=== PATIENT | female | born 1965 | race African-American/Black ===

== ENCOUNTER 2017-01-14 08:43 | Emergency (ER) | payer MEDICAID ==
[~2017-01-14] VITALS: Ht 162.6 cm; Wt 89.0 kg
[~2017-01-14 08:43] MED LIST: ASPI-1079 PO; HYDR25TA; VITA1CAP64 PO
[2017-01-14] MEDS ORDERED: KETOROLAC 60MG/2ML VIAL IM ONE (11:15)
[2017-01-14 12:16] VITALS: BP 158/86
== END 2017-01-14 14:27 | disposition home or self-care (01) ==
LOC: ER 08:57
DX: M54.9 Dorsalgia, unspecified (principal); I10 Essential (primary) hypertension; Z88.8 Allergy status to other drugs, medicaments and biological substances
CPT/HCPCS: 72100; 81025; 96372; 99284; J1885; Z7610

== ENCOUNTER 2017-02-09 09:50 | Emergency (ER) | payer MEDICAID ==
[~2017-02-09] VITALS: Ht 167.6 cm; Wt 64.0 kg
[2017-02-09 09:50] VITALS: BP 130/76
== END 2017-02-09 12:00 | disposition home or self-care (01) ==
LOC: ER 11:42
DX: J11.1 Influenza due to unidentified influenza virus with other respiratory manifestations (principal); Z88.8 Allergy status to other drugs, medicaments and biological substances
CPT/HCPCS: 99283

== ENCOUNTER 2017-05-16 11:58 | Emergency (ER) | payer MEDICAID ==
[~2017-05-16] VITALS: Ht 162.6 cm; Wt 87.0 kg
[2017-05-16] MEDS ORDERED: IBUPROFEN 600MG TABLET PO ONE (13:15)
[2017-05-16 13:50] VITALS: BP 178/78
== END 2017-05-16 13:54 | disposition home or self-care (01) ==
LOC: ER 12:43
DX: S83.91XA Sprain of unspecified site of right knee, initial encounter (principal); W01.0XXA Fall on same level from slipping, tripping and stumbling without subsequent striking against object, initial encounter; Y93.51 Activity, roller skating (inline) and skateboarding; Y92.89 Other specified places as the place of occurrence of the external cause; M17.11 Unilateral primary osteoarthritis, right knee; R03.0 Elevated blood-pressure reading, without diagnosis of hypertension; Z88.8 Allergy status to other drugs, medicaments and biological substances
CPT/HCPCS: 73562; 81025; 99284

== ENCOUNTER 2018-10-23 08:41 | Emergency (ER) | payer MEDICAID ==
[~2018-10-23] VITALS: Ht 172.7 cm; Wt 100.0 kg
[~2018-10-23 08:41] MED LIST changes: +AMLO5TAB88 MT; -ASPI-1079 PO; +BACL-141 MT; +HYDR-4001 MT; -HYDR25TA; -VITA1CAP64 PO
[2018-10-23] MEDS ORDERED: DEXAMETHASONE 10 MG/ML VIAL IM ONE (09:30)
[2018-10-23] MEDS ORDERED: DIAZEPAM 2 MG TABLET PO ONE (09:30)
[2018-10-23] MEDS ORDERED: KETOROLAC 60MG/2ML VIAL IM ONE (09:30)
[2018-10-23 10:37] VITALS: BP 154/89
== END 2018-10-23 10:38 | disposition home or self-care (01) ==
LOC: ER 08:41
DX: M54.12 Radiculopathy, cervical region (principal); M54.41 Lumbago with sciatica, right side
CPT/HCPCS: 96372; 99283; J1100; J1885

== ENCOUNTER 2018-10-29 10:03 | Emergency (ER) | payer MEDICAID ==
[~2018-10-29] VITALS: Ht 167.6 cm; Wt 100.0 kg
[2018-10-29] MEDS ORDERED: ONDANSETRON 4MG ODT PO ONE (11:00)
[2018-10-29] MEDS ORDERED: MORPHINE SULFATE 4 MG/ML CPJ (NOT FOR IM USE) IV ONE (11:00)
[2018-10-29 12:15] VITALS: BP 162/92
== END 2018-10-29 12:25 | disposition home or self-care (01) ==
LOC: ER 10:03
DX: M54.2 Cervicalgia (principal); I10 Essential (primary) hypertension; Z98.890 Other specified postprocedural states; Z88.8 Allergy status to other drugs, medicaments and biological substances; Z79.899 Other long term (current) drug therapy
CPT/HCPCS: 96374; 99283; J2270; Q0162

== ENCOUNTER 2019-08-01 14:27 | Emergency (ER) | payer MEDICAID ==
[~2019-08-01] VITALS: Ht 162.6 cm; Wt 91.0 kg
[2019-08-01] MEDS ORDERED: HYDROCODONE/ACETAMINOPHEN 5/325MG TABLET PO ONE (16:00)
[2019-08-01] MEDS ORDERED: KETOROLAC 30MG/ML VIAL IM ONE (16:00)
[2019-08-01] MEDS ORDERED: AMLODIPINE 5MG TABLET PO ONE (19:45)
[2019-08-01 21:35] VITALS: BP 197/103
[2019-08-01] MEDS ORDERED: HYDRALAZINE HCL 100MG TABLET PO ONE (21:45)
[2019-08-01] MEDS ORDERED: HYDRALAZINE HCL 10MG TABLET PO ONE (21:45)
== END 2019-08-02 02:37 | disposition home or self-care (01) ==
LOC: ER 14:27
DX: R20.2 Paresthesia of skin (principal); M54.2 Cervicalgia; R55 Syncope and collapse; I10 Essential (primary) hypertension
CPT/HCPCS: 72125; 82962; 96372; 99284; J1885

== ENCOUNTER → 2019-09-10 | Outpatient (CLI) | payer MEDICAID ==
[~2019-09-10] MED LIST changes: +AMLO10TA80 PO; +CARV12.545 PO; +VALS1TAB79 PO
== END | disposition home or self-care (01) ==
LOC: LAB 10:16
PROVIDERS: ATTEND Neurological Surgery
DX: Z01.818 Encounter for other preprocedural examination (principal); Z11.59 Encounter for screening for other viral diseases
CPT/HCPCS: 87635; C9803

== ENCOUNTER 2019-09-12 05:14 | Inpatient (IN) | payer MEDICAID ==
[2019-09-12] VITALS (66 sets, daily range): BP systolic 104–160; BP diastolic 47–98
[~2019-09-12] VITALS: Ht 160 cm; Wt 81.6 kg
[~2019-09-12 05:14] MED LIST changes: -AMLO10TA80 PO; -CARV12.545 PO; -VALS1TAB79 PO
[2019-09-12] MEDS ORDERED: LACTATED RINGERS 1,000 ML IV SCH (05:45)
[2019-09-12] MEDS ORDERED: CARV12.545 PO (06:11)
[2019-09-12] MEDS ORDERED: AMLO10TA80 PO (06:11)
[2019-09-12] MEDS ORDERED: VALS1TAB79 PO (06:11)
[2019-09-12] MEDS ORDERED: LIDOCAINE HCL/EPINEPHRINE 1%-EPI 1:100,000 20 ML VIAL ONE (06:24)
[2019-09-12] MEDS ORDERED: THROMBIN (BOVINE) 5000 UNITS/VIAL TOP ONE (06:24)
[2019-09-12] MEDS ORDERED: BACITRACIN 50,000 UNITS/VIAL ONE (06:25)
[2019-09-12] MEDS ORDERED: ROCURONIUM BROMIDE 10MG/ML VIAL 5ML IV ONE ×2 (06:59→08:08)
[2019-09-12] MEDS ORDERED: PROPOFOL 200MG/20ML VIAL IV ONE (07:00)
[2019-09-12] MEDS ORDERED: CEFAZOLIN SODIUM 1000MG/VIAL ONE (07:00)
[2019-09-12] MEDS ORDERED: LIDOCAINE HCL 1% 20ML VIAL (Pyxis) INJ ONE (07:00)
[2019-09-12] MEDS ORDERED: MIDAZOLAM HCL 2 MG/2 ML VIAL ONE (07:00)
[2019-09-12] MEDS ORDERED: ONDANSETRON HCL 4MG/2ML INJ ONE (07:00)
[2019-09-12] MEDS ORDERED: FENTANYL CITRATE/PF 50MCG/ML 2ML VIAL ONE (07:00)
[2019-09-12] MEDS ORDERED: METOCLOPRAMIDE HCL 10MG/2ML VIAL ONE (07:00)
[2019-09-12] MEDS ORDERED: SUCCINYLCHOLINE CHLORIDE 200MG/10ML IV ONE (07:00)
[2019-09-12] MEDS ORDERED: MEPERIDINE HCL/PF 25MG/ML CPJ IV PRN (09:00)
[2019-09-12] MEDS ORDERED: HYDROMORPHONE HCL/PF 2MG/ML CPJ IV PRN (09:00)
[2019-09-12] MEDS ORDERED: ONDANSETRON HCL 4MG/2ML INJ IV PRN (09:00)
[2019-09-12] MEDS ORDERED: DEXAMETHASONE 4MG/ML 1ML VIAL ONE (09:08)
[2019-09-12] MEDS ORDERED: EPHEDRINE SULFATE 50MG/ML VIAL ONE (09:08)
[2019-09-12] MEDS ORDERED: NEOSTIGMINE METHYLSULFATE 1MG/ML 10 ML VIAL ONE (09:10)
[2019-09-12] MEDS ORDERED: GLYCOPYRROLATE 0.2 MG/ML 2ML VIAL ONE (09:10)
[2019-09-12] MEDS ORDERED: HYDROCODONE/ACETAMINOPHEN 5/325MG TABLET PO PRN (09:15)
[2019-09-12] MEDS ORDERED: MORPHINE SULFATE 4 MG/ML CPJ (NOT FOR IM USE) IV PRN (09:15)
[2019-09-12] MEDS ORDERED: KETOROLAC 30MG/ML VIAL ONE (09:34)
[2019-09-12] MEDS ORDERED: ONDANSETRON INJ IV PRN (09:45)
[2019-09-12] MEDS ORDERED: NALOXONE INJ IV PRN (09:45)
[2019-09-12] MEDS ORDERED: HYDROMORPHONE PCA 10MG/50ML IV PRN (09:45)
[2019-09-12] MEDS ORDERED: DIPHENHYDRAMINE INJ IV PRN (09:45)
[2019-09-12] MEDS: DEXT 5%/LACTATED RINGERS 1,000 ML IV SCH ×2 (09:50→20:39)
[2019-09-12] MEDS: NICARDIPINE 100 MG in SODIUM CHLORIDE 0.9% 60 ML IV PRN ×3 (10:03→22:34)
[2019-09-12] MEDS: DEXAMETHASONE 4MG/ML 1ML VIAL IV SCH ×3 (11:43→23:21)
[2019-09-12] MEDS ORDERED: IPRATROPIUM/ALBUTEROL 0.5-3(2.5)MG/3ML NEB HHN PRN (13:30)
[2019-09-12] MEDS ORDERED: CEFAZOLIN SODIUM 1000MG/VIAL IV SCH (14:00)
[2019-09-12] MEDS: CEFAZOLIN 1000MG PREMIX 50 ML IV SCH ×2 (14:06→21:24)
[2019-09-12] MEDS ORDERED: CLONIDINE 0.1MG TABLET PO PRN (19:30)
[2019-09-13] VITALS (64 sets, daily range): BP systolic 87–148; BP diastolic 37–96
[2019-09-13 05:37] LABS: HEMATOCRIT. 33.9 % (36.0-48.0); HEMOGLOBIN. 11.3 g/dL (12.0-16.0); MEAN CORPUSCULAR HEMOGLOBIN 28.4 pg (28.0-32.0); MEAN CORPUSCULAR VOLUME 85.7 fL (81.0-99.0); MEAN PLATELET VOLUME 9.8 fl (7.4-10.4); PLATELET 208 x1000/uL (130-400); RED BLOOD CELL COUNT 3.96 mill/uL (4.2-5.4); RED CELL DISTRIBUTION WIDTH 14.1 % (11.6-14.6)
[2019-09-13 05:38] LABS: CHLORIDE 110 mEq/L (98-107)
[2019-09-13 05:45] LABS: LDL CHOLESTEROL 110 mg/dL (5-100)
[2019-09-13 05:46] LABS: HDL CHOLESTEROL 40 mg/dL (40-59)
[2019-09-13] MEDS: CEFAZOLIN 1000MG PREMIX 50 ML IV SCH (06:19)
[2019-09-13] MEDS: DEXAMETHASONE 4MG/ML 1ML VIAL IV SCH ×4 (06:19→23:21)
[2019-09-13] MEDS: DEXT 5%/LACTATED RINGERS 1,000 ML IV SCH ×3 (06:19→23:21)
[2019-09-13] MEDS: AMLODIPINE 10MG TABLET PO SCH (08:38)
[2019-09-13] MEDS: CARVEDILOL 12.5MG TABLET PO SCH ×2 (08:39→21:13)
[2019-09-13] MEDS ORDERED: AMLODIPINE 5MG TABLET PO SCH (09:00)
[2019-09-13 12:04] LABS: PLATELET ESTIMATE NORMAL
[2019-09-14] VITALS: BP 139/73
[2019-09-14 04:00] VITALS: BP 168/85
[2019-09-14 05:45] LABS: CHLORIDE 105 mEq/L (98-107)
[2019-09-14 05:49] LABS: HEMATOCRIT. 35.7 % (36.0-48.0); HEMOGLOBIN. 11.8 g/dL (12.0-16.0); MEAN CORPUSCULAR HEMOGLOBIN 28.3 pg (28.0-32.0); MEAN CORPUSCULAR VOLUME 85.4 fL (81.0-99.0); MEAN PLATELET VOLUME 9.7 fl (7.4-10.4); PLATELET 218 x1000/uL (130-400); RED BLOOD CELL COUNT 4.18 mill/uL (4.2-5.4); RED CELL DISTRIBUTION WIDTH 14.1 % (11.6-14.6)
[2019-09-14] MEDS: CARVEDILOL 12.5MG TABLET PO SCH ×2 (09:43→21:34)
[2019-09-14] MEDS: AMLODIPINE 10MG TABLET PO SCH (09:43)
[2019-09-14] MEDS: DEXAMETHASONE 4MG/ML 1ML VIAL IV SCH (11:04)
[2019-09-14] MEDS: DEXT 5%/LACTATED RINGERS 1,000 ML IV SCH ×2 (11:09→21:52)
[2019-09-14 15:12] LABS: PLATELET ESTIMATE NORMAL
[2019-09-14 16:00] VITALS: BP 131/61
[2019-09-14 20:00] VITALS: BP 148/75
[2019-09-15] VITALS: BP 156/77
[2019-09-15 06:20] LABS: CHLORIDE 104 mEq/L (98-107)
[2019-09-15 06:33] LABS: HEMOGLOBIN. 11.4 g/dL (12.0-16.0); LYMPHOCYTES % 13.3 % (20.0-50.0); MEAN CORPUSCULAR HEMOGLOBIN 27.8 pg (28.0-32.0); MEAN CORPUSCULAR VOLUME 85.3 fL (81.0-99.0); MEAN PLATELET VOLUME 9.9 fl (7.4-10.4); MONOCYTES % 4.5 % (2.0-8.0); NEUTROPHILS % 82.2 % (40.0-76.0); PLATELET 218 x1000/uL (130-400); RED CELL DISTRIBUTION WIDTH 14.1 % (11.6-14.6)
[2019-09-15] MEDS: DEXT 5%/LACTATED RINGERS 1,000 ML IV SCH (06:47)
[2019-09-15 08:00] VITALS: BP 160/83
[2019-09-15] MEDS: AMLODIPINE 10MG TABLET PO SCH (08:32)
[2019-09-15] MEDS: CARVEDILOL 12.5MG TABLET PO SCH (08:32)
[2019-09-15] MEDS ORDERED: DOCUSATE SODIUM 100MG CAPSULE PO SCH (09:00)
[2019-09-15] MEDS ORDERED: HYDR-4001 MT (10:11)
[2019-09-15 10:20] VITALS: BP 138/76
== END 2019-09-15 10:35 | disposition home or self-care (01) | DRG 321 ==
LOC: OR 05:14 → MICUNO 05:15 → 6EST 09-13 16:57
PROVIDERS: ADMIT Neurological Surgery; ATTEND Neurological Surgery
PROC: 0RG10J0 Fusion of Cervical Vertebral Joint with Synthetic Substitute, Anterior Approach, Anterior Column, Open Approach (ICD-10-PCS; principal; 2019-09-12)
PROC: 0RB30ZZ Excision of Cervical Vertebral Disc, Open Approach (ICD-10-PCS; 2019-09-12)
DX: M47.12 Other spondylosis with myelopathy, cervical region (principal); G82.50 Quadriplegia, unspecified; F17.210 Nicotine dependence, cigarettes, uncomplicated; I10 Essential (primary) hypertension; M48.02 Spinal stenosis, cervical region; M50.20 Other cervical disc displacement, unspecified cervical region; R26.89 Other abnormalities of gait and mobility; Z88.8 Allergy status to other drugs, medicaments and biological substances; Z86.011 Personal history of benign neoplasm of the brain
CPT/HCPCS: 36415; 71045; 72040; 72141; 76000; 80048; 80053; 80061; 83036; 85025; 86850; 86900; 88311; 93005; 95863; 95925; 95926; 95928; 95929; 95940; 97116; 97162; 97166; 97530; 97535; C1713; J0330; J0690; J1100; J1885; J2250; J2270; J2405; J2704; J2710; J2765; J3010; J3490; J7050; J7121; L0172

== ENCOUNTER 2020-01-12 10:31 | Emergency (ER) | payer MEDICAID ==
[~2020-01-12] VITALS: Ht 162.6 cm; Wt 73.0 kg
[~2020-01-12 10:31] MED LIST changes: +AMLO10TA80 PO; +CARV12.545 PO; +VALS1TAB79 PO
[2020-01-12] MEDS ORDERED: IBUPROFEN 600MG TABLET PO STA (10:59)
[2020-01-12 11:50] VITALS: BP 196/93
== END 2020-01-12 12:37 | disposition home or self-care (01) ==
LOC: ER 10:31
DX: S16.1XXA Strain of muscle, fascia and tendon at neck level, initial encounter (principal); M25.552 Pain in left hip; V49.49XA Driver injured in collision with other motor vehicles in traffic accident, initial encounter; Y93.89 Activity, other specified; Y92.488 Other paved roadways as the place of occurrence of the external cause
CPT/HCPCS: 73503; 99284

== ENCOUNTER 2020-07-14 10:11 | Emergency (ER) | payer MEDICAID ==
[~2020-07-14] VITALS: Ht 172.7 cm; Wt 84.0 kg
[2020-07-14] MEDS ORDERED: ONDANSETRON HCL 4MG/2ML INJ IV STA (10:25)
[2020-07-14] MEDS ORDERED: MORPHINE SULFATE 4 MG/ML CPJ (NOT FOR IM USE) IV STA (10:25)
[2020-07-14] MEDS ORDERED: SODIUM CHLORIDE 0.9% 1,000 ML IV ONE (10:30)
[2020-07-14 11:06] LABS: BASOPHILS % 0.7 % (0.0-2.0); EOSINOPHILS % 4.3 % (0.0-5.0); HEMOGLOBIN. 12.9 g/dL (12.0-16.0); MEAN CORPUSCULAR HEMOGLOBIN 30.4 pg (28.0-32.0); MEAN CORPUSCULAR VOLUME 86.9 fL (81.0-99.0); MONOCYTES % 8.2 % (2.0-8.0); NEUTROPHILS % 53.8 % (40.0-76.0); PLATELET 221 x1000/uL (130-400); RED BLOOD CELL COUNT 4.26 mill/uL (4.2-5.4); RED CELL DISTRIBUTION WIDTH 13.3 % (11.6-14.6)
[2020-07-14 11:11] LABS: CHLORIDE 107 mEq/L (98-107)
[2020-07-14 11:14] LABS: INR 1.1; PARTIAL THROMBOPLASTIN TIME 31.6 sec (23.4-31.0); PROTHROMBIN TIME 11.5 sec (9.6-11.0)
[2020-07-14] MEDS ORDERED: IBUP-2029 MT (12:10)
[2020-07-14] MEDS ORDERED: HYDR-4346 MT (12:10)
[2020-07-14] MEDS ORDERED: VALS1TAB79 MT (12:10)
[2020-07-14 12:39] VITALS: BP 177/88
== END 2020-07-14 12:41 | disposition home or self-care (01) ==
LOC: ER 10:11
DX: S89.81XA Other specified injuries of right lower leg, initial encounter (principal); X58.XXXA Exposure to other specified factors, initial encounter; I10 Essential (primary) hypertension; Y93.89 Activity, other specified; M25.461 Effusion, right knee; Y92.89 Other specified places as the place of occurrence of the external cause; J45.909 Unspecified asthma, uncomplicated
CPT/HCPCS: 29505; 36415; 73564; 80048; 84550; 85025; 85610; 85730; 96374; 96375; 99284; J2270; J2405; J7030; L1830; Z7610

== ENCOUNTER 2020-10-25 05:59 | Emergency (ER) | payer MEDICAID ==
[~2020-10-25] VITALS: Ht 162.6 cm; Wt 71.0 kg
[~2020-10-25 05:59] MED LIST changes: +HYDR-4346 MT; +IBUP-2029 MT; +VALS1TAB79 MT
[2020-10-25] MEDS ORDERED: KETOROLAC 60MG/2ML VIAL IM ONE (07:15)
[2020-10-25 08:03] LABS: CLARITY URINE CLEAR (CLEAR); COLOR URINE YELLOW (YELLOW); KETONES URINE NEGATIVE (NEGATIVE); LEUKOCYTE ESTERASE URINE NEGATIVE (NEGATIVE); NITRITE URINE NEGATIVE (NEGATIVE); OCCULT BLOOD URINE NEGATIVE (NEGATIVE); PROTEIN URINE NEGATIVE (NEGATIVE); SPECIFIC GRAVITY URINE 1.011 (1.005-1.030); UROBILINOGEN URINE 0.2 E.U./dL (0.2-1.0)
[2020-10-25] MEDS ORDERED: HYDR-4001 MT (09:10)
[2020-10-25] MEDS ORDERED: IBUP-2741 MT (09:11)
[2020-10-25 09:22] VITALS: BP 147/69
== END 2020-10-25 09:23 | disposition home or self-care (01) ==
LOC: ER 05:59
DX: M54.5 Low back pain (principal); G89.29 Other chronic pain; I10 Essential (primary) hypertension; Z79.899 Other long term (current) drug therapy; Z98.890 Other specified postprocedural states
CPT/HCPCS: 81003; 96372; 99283; J1885

== ENCOUNTER 2021-05-21 14:03 | Emergency (ER) | payer MEDICAID ==
[~2021-05-21] VITALS: Ht 162.6 cm; Wt 68.0 kg
[~2021-05-21 14:03] MED LIST changes: +IBUP-2741 MT
[2021-05-21 15:49] VITALS: BP 141/75
[2021-05-21] MEDS ORDERED: HYDROCODONE/ACETAMINOPHEN 5/325MG TABLET PO STA (15:49)
[2021-05-21] MEDS ORDERED: LORAZEPAM 0.5MG TABLET PO ONE (16:00)
[2021-05-21] MEDS ORDERED: DEXAMETHASONE 4MG TABLET PO ONE (17:00)
[2021-05-21] MEDS ORDERED: METH-653 MT (17:01)
== END 2021-05-21 17:39 | disposition home or self-care (01) ==
LOC: ER 14:21
DX: M54.41 Lumbago with sciatica, right side (principal); M54.42 Lumbago with sciatica, left side; R03.0 Elevated blood-pressure reading, without diagnosis of hypertension; Z88.8 Allergy status to other drugs, medicaments and biological substances
CPT/HCPCS: 72100; 99284; J8540

== ENCOUNTER 2021-05-28 16:10 | Emergency (ER) | payer MEDICAID, OTHER ==
[~2021-05-28] VITALS: Ht 162.6 cm; Wt 70.0 kg
[~2021-05-28 16:10] MED LIST changes: +METH-653 MT
[2021-05-28 16:36] VITALS: BP 114/62
[2021-05-28] MEDS ORDERED: HYDR-4001 MT (16:38)
[2021-05-28] MEDS ORDERED: GABA-533 MT (16:38)
[2021-05-28] MEDS ORDERED: HYDROCODONE/ACETAMINOPHEN 5/325MG TABLET PO ONE (17:00)
== END 2021-05-28 19:02 | disposition home or self-care (01) ==
LOC: ER 16:10
DX: M54.40 Lumbago with sciatica, unspecified side (principal); M79.605 Pain in left leg; M79.604 Pain in right leg; I10 Essential (primary) hypertension
CPT/HCPCS: 99283

== ENCOUNTER 2021-08-15 22:40 | Emergency (ER) | payer MEDICAID, OTHER ==
[~2021-08-15] VITALS: Ht 170.2 cm; Wt 86.2 kg
[~2021-08-15 22:40] MED LIST changes: +GABA-533 MT
[2021-08-16] MEDS ORDERED: HYDROCODONE/ACETAMINOPHEN 5/325MG TABLET PO ONE (00:15)
[2021-08-16] MEDS ORDERED: KETOROLAC 60MG/2ML VIAL IM ONE (00:15)
[2021-08-16 01:05] LABS: CLARITY URINE CLEAR (CLEAR); COLOR URINE YELLOW (YELLOW); KETONES URINE TRACE (NEGATIVE); LEUKOCYTE ESTERASE URINE 2+ (NEGATIVE); NITRITE URINE NEGATIVE (NEGATIVE); OCCULT BLOOD URINE NEGATIVE (NEGATIVE); PH URINE 5.5 (4.5-8.0); PROTEIN URINE NEGATIVE (NEGATIVE); SPECIFIC GRAVITY URINE 1.027 (1.005-1.030)
[2021-08-16] MEDS ORDERED: CEPH500C2 MT (02:06)
[2021-08-16] MEDS ORDERED: CEFTRIAXONE SODIUM 1 G/VIAL IM ONE (02:15)
[2021-08-16 02:28] VITALS: BP 122/78
== END 2021-08-16 02:28 | disposition home or self-care (01) ==
LOC: ER 22:40
DX: M54.42 Lumbago with sciatica, left side (principal); N39.0 Urinary tract infection, site not specified; I10 Essential (primary) hypertension; Z79.899 Other long term (current) drug therapy
CPT/HCPCS: 81003; 81025; 87086; 99284; J0696; J1885; 96372

== ENCOUNTER 2021-10-26 04:00 | Emergency (ER) | payer OTHER ==
[~2021-10-26] VITALS: Ht 172.7 cm; Wt 90.0 kg
[~2021-10-26 04:00] MED LIST changes: +CEPH500C2 MT
[2021-10-26 04:12] VITALS: BP 134/74
[2021-10-26] MEDS ORDERED: FAMOTIDINE 20MG/2ML VIAL IV STA (04:25)
[2021-10-26] MEDS ORDERED: ONDANSETRON HCL 4MG/2ML INJ IV STA (04:25)
[2021-10-26] MEDS ORDERED: SODIUM CHLORIDE 0.9% 1,000 ML IV ONE (04:30)
[2021-10-26 05:54] LABS: BASOPHILS % 0.7 % (0.0-2.0); EOSINOPHILS % 1.9 % (0.0-5.0); HEMATOCRIT. 36.4 % (36.0-48.0); HEMOGLOBIN. 12.1 g/dL (12.0-16.0); LYMPHOCYTES % 27.1 % (20.0-50.0); MEAN CORPUSCULAR HEMOGLOBIN 28.4 pg (28.0-32.0); MEAN CORPUSCULAR VOLUME 85.8 fL (81.0-99.0); MEAN PLATELET VOLUME 8.7 fl (7.4-10.4); MONOCYTES % 6.6 % (2.0-8.0); NEUTROPHILS % 63.7 % (40.0-76.0); PLATELET 253 x1000/uL (130-400); RED BLOOD CELL COUNT 4.25 mill/uL (4.2-5.4); RED CELL DISTRIBUTION WIDTH 13.4 % (11.6-14.6)
[2021-10-26 05:57] LABS: CHLORIDE 105 mEq/L (98-107)
[2021-10-26] MEDS ORDERED: ONDANSETRON HCL 4MG/2ML INJ IV SCH (08:15)
[2021-10-26] MEDS ORDERED: FAMOTIDINE 20MG/2ML VIAL IV SCH (08:15)
[2021-10-26 10:31] LABS: CLARITY URINE CLEAR (CLEAR); COLOR URINE YELLOW (YELLOW); KETONES URINE NEGATIVE (NEGATIVE); LEUKOCYTE ESTERASE URINE NEGATIVE (NEGATIVE); NITRITE URINE NEGATIVE (NEGATIVE); OCCULT BLOOD URINE NEGATIVE (NEGATIVE); PH URINE 5.5 (4.5-8.0); PROTEIN URINE NEGATIVE (NEGATIVE); SPECIFIC GRAVITY URINE 1.022 (1.005-1.030); UROBILINOGEN URINE 0.2 E.U./dL (0.2-1.0)
[2021-10-26] MEDS ORDERED: METO-293 MT (10:37)
[2021-10-26] MEDS ORDERED: FAMO-135 MT (10:37)
== END 2021-10-26 11:22 | disposition home or self-care (01) ==
LOC: ER 04:00
DX: R10.13 Epigastric pain (principal); R11.2 Nausea with vomiting, unspecified; K76.0 Fatty (change of) liver, not elsewhere classified; I10 Essential (primary) hypertension
CPT/HCPCS: 36415; 76705; 80053; 81003; 83690; 85025; 96361; 96374; 96375; 99284; J2405; J3490; J7030

== ENCOUNTER 2022-05-03 18:46 | Emergency (ER) | payer MEDICAID, OTHER ==
[~2022-05-03] VITALS: Ht 162.6 cm; Wt 72.0 kg
[~2022-05-03 18:46] MED LIST changes: +FAMO-135 MT; +METO-293 MT
[2022-05-03 19:00] VITALS: BP 132/68
[2022-05-04] MEDS ORDERED: HYDR-4001 MT (04:08)
[2022-05-04] MEDS ORDERED: KETOROLAC 30MG/ML VIAL IM ONE (04:15)
== END 2022-05-04 04:36 | disposition home or self-care (01) ==
LOC: ER 18:46
DX: M54.32 Sciatica, left side (principal); I10 Essential (primary) hypertension; Z79.899 Other long term (current) drug therapy
CPT/HCPCS: 96372; 99283; J1885; Z7610

== ENCOUNTER 2022-05-27 17:57 | Emergency (ER) | payer MEDICAID, OTHER ==
[~2022-05-27] VITALS: Ht 165.1 cm; Wt 70.0 kg
[2022-05-27] MEDS ORDERED: HYDROCODONE/ACETAMINOPHEN 5/325MG TABLET PO ONE (20:00)
[2022-05-27] MEDS ORDERED: KETOROLAC 60MG/2ML VIAL IM ONE (20:00)
[2022-05-27] MEDS ORDERED: HYDR-4001 MT (20:58)
[2022-05-27] MEDS ORDERED: IBUP-2028 MT (20:58)
[2022-05-27 21:20] VITALS: BP 130/78
== END 2022-05-27 21:22 | disposition home or self-care (01) ==
LOC: ER 17:57
DX: M54.9 Dorsalgia, unspecified (principal); I10 Essential (primary) hypertension; Z79.899 Other long term (current) drug therapy
CPT/HCPCS: 72100; 96372; 99283; J1885; Z7610

== ENCOUNTER 2022-07-20 12:22 | Emergency (ER) | payer MEDICAID, OTHER ==
[~2022-07-20] VITALS: Ht 162.6 cm; Wt 93.0 kg
[~2022-07-20 12:22] MED LIST changes: +IBUP-2028 MT
[2022-07-20] MEDS ORDERED: HYDROCODONE/ACETAMINOPHEN 5/325MG TABLET PO ONE (13:30)
[2022-07-20] MEDS ORDERED: KETOROLAC 30MG/ML VIAL IM ONE (13:30)
[2022-07-20] MEDS ORDERED: CYCL10TA21 MT (15:29)
[2022-07-20] MEDS ORDERED: NAPR-1176 MT (15:29)
[2022-07-20 15:42] VITALS: BP 127/86
== END 2022-07-20 15:44 | disposition home or self-care (01) ==
LOC: ER 12:48
DX: S30.0XXA Contusion of lower back and pelvis, initial encounter (principal); M48.00 Spinal stenosis, site unspecified; I10 Essential (primary) hypertension; Z88.8 Allergy status to other drugs, medicaments and biological substances; Z79.899 Other long term (current) drug therapy; Z98.890 Other specified postprocedural states; W18.30XA Fall on same level, unspecified, initial encounter; Y93.89 Activity, other specified; Y92.89 Other specified places as the place of occurrence of the external cause; Y99.8 Other external cause status
CPT/HCPCS: 72131; 96372; 99285; J1885

== ENCOUNTER 2023-11-03 20:52 | Emergency (ER) | payer MEDICAID, OTHER ==
[~2023-11-03] VITALS: Ht 162.6 cm; Wt 87.0 kg
[~2023-11-03 20:52] MED LIST changes: +ACET-283 PO; -AMLO5TAB88 MT; -BACL-141 MT; -CEPH500C2 MT; +CYCL10TA21 MT; +DICL100G58 TP; +DICL75TA5 PO; +GABA-532 PO; -GABA-533 MT; -HYDR-4001 MT; -HYDR-4346 MT; +HYDR25TA78 PO; -IBUP-2028 MT; -IBUP-2029 MT; +IBUP-2030 PO; -IBUP-2741 MT; -METH-653 MT; -METO-293 MT; -VALS1TAB79 MT
[2023-11-03 21:07] VITALS: O2SAT 100
[2023-11-03 23:39] LABS: BASOPHILS % 1.5 % (0.0-2.0); EOSINOPHILS % 1.6 % (0.0-5.0); HEMATOCRIT. 39.2 % (36.0-48.0); HEMOGLOBIN. 12.9 g/dL (12.0-16.0); LYMPHOCYTES % 27.5 % (20.0-50.0); MEAN CORPUSCULAR HEMOGLOBIN 28.4 pg (28.0-32.0); MEAN CORPUSCULAR VOLUME 86.1 fL (81.0-99.0); MEAN PLATELET VOLUME 8.4 fl (7.4-10.4); MONOCYTES % 6.6 % (2.0-8.0); NEUTROPHILS % 62.8 % (40.0-76.0); PLATELET 311 x1000/uL (130-400); RED BLOOD CELL COUNT 4.55 mill/uL (4.2-5.4); RED CELL DISTRIBUTION WIDTH 13.5 % (11.6-14.6); WHITE BLOOD COUNT 7.6 x1000/uL (4.5-11.0)
[2023-11-03 23:42] LABS: CHLORIDE 102 mEq/L (98-107); POTASSIUM 3.7 mEq/L (3.5-5.1); SODIUM 135 mEq/L (136-145)
[2023-11-03 23:43] LABS: CARBON DIOXIDE 28 mEq/L (21-32)
[2023-11-03 23:44] LABS: CALCIUM 9.4 mg/dL (8.7-10.4)
[2023-11-03 23:48] LABS: CREATININE 0.8 mg/dL (0.6-1.0); GLUCOSE 90 mg/dL (70-105); UREA NITROGEN BLOOD 7 mg/dL (9-23)
[2023-11-03 23:53] LABS: THYROID STIMULATING HORMONE 1.93 uIU/mL (0.55-4.78)
[2023-11-04 02:17] VITALS: TEMP 37.11408
[2023-11-04] MEDS: IOHEXOL-300 100 ML BOTTLE ONE (07:20)
[2023-11-04 08:25] LABS: GLUCOSE URINE NEGATIVE (NEGATIVE); KETONES URINE NEGATIVE (NEGATIVE)
[2023-11-04 08:53] LABS: CLARITY URINE CLEAR (CLEAR); COLOR URINE YELLOW (YELLOW); OCCULT BLOOD URINE TRACE (NEGATIVE); PROTEIN URINE NEGATIVE (NEGATIVE); SPECIFIC GRAVITY URINE 1.051 (1.005-1.030)
[2023-11-04 08:54] LABS: LEUKOCYTE ESTERASE URINE NEGATIVE (NEGATIVE); NITRITE URINE NEGATIVE (NEGATIVE); UROBILINOGEN URINE 0.2 E.U./dL (0.2-1.0)
[2023-11-04 08:56] LABS: BACTERIA URINE 1+; RBC URINE 0-2 /hpf (0-2); SQUAMOUS EPITHELIAL CELL URINE 1+ /lpf (RARE/1+); WBC URINE 0-2 /hpf (0-2); YEAST URINE NONE SEEN
[2023-11-04] MEDS: HYDRALAZINE 20MG/ML VIAL IV NR (08:59)
[2023-11-04 09:24] VITALS: BP 144/70; PULSE 88; RESP 20; O2SAT 98
[2023-11-04] MEDS ORDERED: CLONIDINE 0.1MG TABLET PO PRN (09:30)
== END 2023-11-04 09:55 | disposition short-term general hospital (02) ==
LOC: ER 20:52 → EDBEDREQ 11-04 01:09 → ER 11-04 09:55
DX: N93.9 Abnormal uterine and vaginal bleeding, unspecified (principal); R07.89 Other chest pain; I10 Essential (primary) hypertension; Z79.899 Other long term (current) drug therapy
CPT/HCPCS: 80048; 84443; 85025; 86850; 86900; 86901; 36415; 76830; 76856; 99285; 81003; 74177; 96374; Q9967; J0360; Z7610 ×2

== ENCOUNTER 2024-12-09 15:40 | Emergency (ER) | payer OTHER ==
[~2024-12-09] VITALS: Ht 167.6 cm; Wt 69.0 kg
[~2024-12-09 15:40] MED LIST changes: +GABA-1180 PO; -GABA-532 PO
[2024-12-09 16:08] VITALS: O2SAT 99
[2024-12-09 16:55] LABS: BASOPHILS % 0.7 % (0.0-2.0); EOSINOPHILS % 2.2 % (0.0-5.0); HEMATOCRIT. 38.1 % (36.0-48.0); HEMOGLOBIN. 12.5 g/dL (12.0-16.0); LYMPHOCYTES % 27.7 % (20.0-50.0); MEAN PLATELET VOLUME 9.3 fl (7.4-10.4); MONOCYTES % 5.2 % (2.0-8.0); NEUTROPHILS % 64.2 % (40.0-76.0); PLATELET 239 x1000/uL (130-400); RED BLOOD CELL COUNT 4.40 mill/uL (4.2-5.4); RED CELL DISTRIBUTION WIDTH 13.4 % (11.6-14.6)
[2024-12-09 17:10] LABS: CREATININE 0.9 mg/dL (0.6-1.0)
[2024-12-09 17:11] LABS: TROPONIN I HIGH SENSITIVITY < 4 ng/L (3.0-34); UREA NITROGEN BLOOD 9 mg/dL (9-23)
[2024-12-09 17:12] LABS: ASPARTATE AMINOTRANSFERASE 12 IU/L (<34)
[2024-12-09 17:13] LABS: BILIRUBIN DIRECT 0.1 mg/dL (<=3.0); BILIRUBIN TOTAL 0.4 mg/dL (0.1-1.0); PROTEIN TOTAL 7.4 g/dL (6.0-8.3)
[2024-12-09] MEDS: ONDANSETRON HCL 4MG/2ML INJ IV ONE (17:28)
[2024-12-09] MEDS: FAMOTIDINE 20MG/2ML VIAL IV ONE (17:28)
[2024-12-09] MEDS: SODIUM CHLORIDE 0.9% 1,000 ML IV ONE (17:28)
[2024-12-09 21:10] VITALS: BP 158/80; PULSE 60; RESP 18; TEMP 37.2; O2SAT 96
== END 2024-12-09 21:21 | disposition home or self-care (01) ==
LOC: ER 15:40
DX: K52.9 Noninfective gastroenteritis and colitis, unspecified (principal); R11.2 Nausea with vomiting, unspecified; I11.9 Hypertensive heart disease without heart failure; Z79.899 Other long term (current) drug therapy; Z88.8 Allergy status to other drugs, medicaments and biological substances; F10.90 Alcohol use, unspecified, uncomplicated; Y90.9 Presence of alcohol in blood, level not specified
CPT/HCPCS: 80076; 80048; 83690; 85025; 84484; 36415; 76705; 93005; 96361; 96374; 96375; 99285; J1308; J2405; J7030; Z7610